=== PATIENT | male | born 1945 | race Caucasian/White ===

== ENCOUNTER 2016-08-29 10:05 | Outpatient (CLI) | payer MEDICARE ==
[2016-08-29 12:57] LABS: #Basophils 0.1 thou/uL (0.0-0.2); #Eosinphils 0.5 thou/uL (0.0-0.7); #Lymphocytes 2.4 thou/uL (1.20-3.40); #Monocytes 0.6 thou/uL (0.11-0.59); #Neutrophils 1.8 thou/uL (1.40-6.50); %Basophils 2.2 % (0.0-1.0); %Eosinophils 8.6 % (0.0-10.0); %Lymphocytes 45.1 % (21.0-51.0); %Monocytes 11.2 % (0.0-10.0); %Neutrophils 32.9 % (42.0-75.0); Bilirubin Negative (Negative); Blood, Urine Trace (Negative); Clarity Clear (Clear); Glucose, Urine (Dipstick) Negative (Negative); Hemoglobin 13.6 g/dL (14.0-18.0); Leukocyte Negative (Negative); Mean Corpuscular HGB CONC 32.2 g/dL (32.0-36.0); Mean Corpuscular Hemoglobin 30.7 pg (27.0-31.0); Mean Corpuscular Volume 95.6 fl (80.0-94.0); Mean Platelet Volume 7.4 fL (7.4-10.4); Nitrite Negative (Negative); Platelet Count 282 thou/uL (130-400); Protein, Urine (Dipstick) Negative (Neg-Trace); Red Blood Cell (RBC) Count 4.43 mill/uL (4.70-6.10); Specific Gravity, Urine 1.025 (1.005-1.030); Urobilinogen 0.2 mg/dL (0.2-1.0); White Blood Cell (WBC) Count 5.3 thou/uL (4.8-10.8); pH, Urine 5.5 (5.0-9.0)
[2016-08-29 13:08] LABS: ALT (SGPT) 22 U/L (8-55); AST (SGOT) 28 U/L (5-34); Albumin 4.1 g/dL (3.4-4.8); Alkaline Phosphatase 47 U/L (40-150); Anion Gap 15 mmol/L (10-20); BUN (Urea Nitrogen) 16 mg/dL (8.4-25.7); Bilirubin, Total 0.4 mg/dL (0.2-1.2); Calc. Creatinine Clearance 0 mL/min (70-130); Calcium 9.1 mg/dL (7.8-10.44); Carbon Dioxide 24 mmol/L (23-31); Cardiac Risk 2.7 (Less than 4.5); Chloride 107 mmol/L (98-107); Cholesterol 176 mg/dl (< 200 Desired); Estimated GFR-MDRD 84; Globulin 2.8 g/dL (2.4-3.5); Glucose 85 mg/dL (83-110); HDL Cholesterol 65 mg/dL (>60 Neg Risk); LDL Cholesterol, Calculated 102 mg/dL; Potassium 4.8 mmol/L (3.5-5.1); Protein, Total 6.9 g/dL (5.8-8.1); Sodium 141 mmol/L (136-145); Triglycerides 43 mg/dL (Less than 150)
[2016-08-29 13:55] LABS: Bacteria/HPF None Seen HPF (None Seen); Crystals/HPF RARE CA OXALATE HPF (Negative); RBC/HPF 0-3 HPF (0-3); Squamous Epithelial 0-3 HPF (0-3); WBC/HPF 0-3 HPF (0-3)
== END 2016-08-29 10:06 | disposition home or self-care (01) ==
LOC: NAVSJIPCSP 10:05
PROVIDERS: ATTEND Internal Medicine
DX: E78.5 Hyperlipidemia, unspecified (principal); R97.20 Elevated prostate specific antigen [PSA]; I10 Essential (primary) hypertension
CPT/HCPCS: 36415; 80053; 80061; 81003; 81015; 84443; 85025

== ENCOUNTER 2017-09-12 18:17 | Emergency (ER) | payer MEDICARE ==
[2017-09-12] MEDS ORDERED: Adacel (T-DAP) 0.5 ML VIAL ONE (18:28)
--- NOTE | 2017-09-12 19:45 | RAD ---
TWO VIEWS OF THE RIGHT WRIST: 09/12/17 COMPARISON: None. HISTORY: Patient was drilling a chicken coop and the drill misfired and the drill had broke off in the wrist. FINDINGS: Three views of the right wrist shows no evidence of acute fracture or dislocation. There is a portion of a drill bit in the anterior aspect of the wrist measuring approximately 2.0 cm in length. Surroun ding soft tissue swelling is seen. This drill bit may or may not drill into the volar cortex of the r adius. IMPRESSION: Radiopaque foreign body in the wrist. On all three images, it appears to be overlying the radius and this may have drilled into the volar cortex of the radius. POS: KASSANDRA
== END 2017-09-12 19:52 | disposition short-term general hospital (02) ==
LOC: NAV ERS 18:17
DX: S61.531A Puncture wound without foreign body of right wrist, initial encounter (principal); I10 Essential (primary) hypertension; Z79.899 Other long term (current) drug therapy; W45.8XXA Other foreign body or object entering through skin, initial encounter
CPT/HCPCS: 90471; 90715

== ENCOUNTER 2018-06-23 10:38 | Outpatient (CLI) | payer MEDICARE ==
--- NOTE | 2018-06-23 12:06 | ULT ---
ABDOMINAL AORTIC ULTRASOUND: HISTORY: Abdominal aortic screening. FINDINGS: The proximal aorta measures 1.7 x 1.7 x 1.7 cm. The mid aorta measures 1.5 x 1.6 x 1.5 cm. The distal aorta measures 1.5 x 1.5 x 1.3 cm. The right common iliac artery measures 0.8 cm, and the left common iliac artery measures 0.9 cm. IMPRESSION: No evidence of abdominal aortic aneurysm. POS: KASSANDRA
== END 2018-06-23 10:39 | disposition home or self-care (01) ==
LOC: NAV ULT 10:38
PROVIDERS: ATTEND Internal Medicine
DX: Z13.6 Encounter for screening for cardiovascular disorders (principal)
CPT/HCPCS: 76775